=== PATIENT | male | born 1980 | race Hispanic/Latino ===

== ENCOUNTER 2021-11-15 16:18 | Emergency (ER) | payer OTHER ==
[2021-11-15] MEDS ORDERED: IOHEXOL 350 MG/ML 100ML INFUS..BTL IV ONE (16:50)
[2021-11-15 16:58] LABS: BASOPHILS % (AUTO) 0.3 % (0.0-5.0); LYMPHOCYTES % (AUTO) 29.7 % (21.0-51.0); MEAN CORPUSCULAR HEMOGLOBIN 31.1 pg (27.0-33.0); MEAN CORPUSCULAR HGB CONC 35.9 g/dL (32.0-36.0); MEAN CORPUSCULAR VOLUME 86.7 fL (79-99); MONOCYTES % (AUTO) 8.4 % (3.0-13.0); PLATELET COUNT (AUTO) 217 K/uL (130-400); RED BLOOD CELL COUNT(AUTO) 4.73 MIL/uL (4.50-6.20); RED CELL DISTRIBUTION WIDTH 11.8 % (11.0-15.5); WHITE BLOOD COUNT (AUTO) 9.2 K/uL (4.8-10.8)
[2021-11-15 17:18] LABS: ALBUMIN 3.8 g/dL (3.5-5.0); CREATININE 1.3 mg/dL (0.5-1.5); POTASSIUM 3.6 mmol/L (3.5-5.1); TOTAL PROTEIN, SERUM 7.8 g/dL (6.0-8.3)
[2021-11-15] MEDS ORDERED: LIDOCAINE HCL 1% 10 ML VIAL ONE (18:08)
[2021-11-15] MEDS ORDERED: CEFAZOLIN SODIUM 1 GM VIAL IVP STA (18:23)
[2021-11-15] MEDS ORDERED: 0.9%NACL 50ML 50 ML IV ONE (18:27)
[2021-11-15] MEDS ORDERED: HYDROCODONE/ACETAMINOPHEN 5/325 MG TAB PO ONE (21:00)
[2021-11-15] MEDS ORDERED: KETOROLAC 30MG VIAL (30MG/ML) IVP ONE (21:00)
[2021-11-15] MEDS ORDERED: TETANUS/DIPHTHERIA TOXOID [ADULT] 0.5 ML VIAL IM ONE (21:00)
[2021-11-15 21:35] LABS: APPEARANCE,URINE CLOUDY (CLEAR); BILIRUBIN,URINE NEGATIVE (NEGATIVE); COLOR,URINE YELLOW (YELLOW); GLUCOSE, URINE (UA) NEGATIVE (NEGATIVE); KETONES,URINE NEGATIVE (NEGATIVE); LEUKOCYTE ESTERASE ,URINE LARGE (NEGATIVE); NITRATE,URINE POSITIVE (NEGATIVE); OCCULT BLOOD,URINE MODERATE (NEGATIVE); PROTEIN,URINE NEGATIVE (NEGATIVE)
[2021-11-15 21:41] LABS: BACTERIA,URINE Moderate /HPF (None Seen); SQUAMOUS EPITHELIAL CELL,UR Few /HPF (0-2); WBC,URINE 51-100 /HPF (0-1)
[2021-11-15 22:00] VITALS: BP 131/71
[2021-11-15] MEDS ORDERED: CEPH500B PO (22:29)
[2021-11-15] MEDS ORDERED: ACET-2079 PO (22:29)
[2021-11-15] MEDS ORDERED: IBUP-2070 PO (22:29)
== END 2021-11-15 22:44 | disposition home or self-care (01) ==
LOC: EDH 16:18
DX: S68.127A Partial traumatic metacarpophalangeal amputation of left little finger, initial encounter (principal); S46.912A Strain of unspecified muscle, fascia and tendon at shoulder and upper arm level, left arm, initial encounter; S20.212A Contusion of left front wall of thorax, initial encounter; R82.71 Bacteriuria; W11.XXXA Fall on and from ladder, initial encounter; Y93.89 Activity, other specified; Y92.89 Other specified places as the place of occurrence of the external cause; Y99.8 Other external cause status
CPT/HCPCS: 99285; 70450; 96374; 96375; 82550; 84484; 80053; 85025; 87077; 87088; 87186; 81001; 36415; 90714; 73120; 73030; 72125; 71260; 74177; 90471; 29125; 93005; J0690 ×2; J1885; J3490; Q9967; 11730

== ENCOUNTER 2022-05-21 22:20 | Emergency (ER) | payer OTHER ==
[~2022-05-21] VITALS: Ht 167.6 cm; Wt 105.2 kg
[~2022-05-21 22:20] MED LIST: ACET-2079 PO; CEPH500B PO; IBUP-2070 PO
[2022-05-21] MEDS ORDERED: 0.9%NACL 1000ML 1,000 ML IV ONE (23:30)
[2022-05-21] MEDS ORDERED: IBUPROFEN 600 MG TABLET PO ONE (23:30)
[2022-05-21] MEDS ORDERED: ACETAMINOPHEN 500 MG TABLET PO ONE (23:30)
[2022-05-21 23:31] LABS: BASOPHILS % (AUTO) 0.2 % (0.0-5.0); HEMATOCRIT 41.4 % (42-54); LYMPHOCYTES % (AUTO) 5.2 % (21.0-51.0); MEAN CORPUSCULAR HEMOGLOBIN 30.1 pg (27.0-33.0); MEAN CORPUSCULAR HGB CONC 34.8 g/dL (32.0-36.0); MEAN CORPUSCULAR VOLUME 86.4 fL (79-99); MONOCYTES % (AUTO) 4.9 % (3.0-13.0); PLATELET COUNT (AUTO) 131 K/uL (130-400); RED BLOOD CELL COUNT(AUTO) 4.79 MIL/uL (4.50-6.20); WHITE BLOOD COUNT (AUTO) 11.1 K/uL (4.8-10.8)
[2022-05-21] MEDS: 0.9%NACL 1000ML 1,000 ML IV ONE (23:34)
[2022-05-21 23:42] LABS: POTASSIUM 3.8 mmol/L (3.5-5.1)
[2022-05-21 23:47] LABS: ALBUMIN 3.5 g/dL (3.5-5.0); TOTAL PROTEIN, SERUM 7.9 g/dL (6.0-8.3)
[2022-05-21 23:49] LABS: APPEARANCE,URINE HAZY (CLEAR); BILIRUBIN,URINE NEGATIVE (NEGATIVE); COLOR,URINE LIGHT-YELLOW (YELLOW); GLUCOSE, URINE (UA) 300 mg/dL (NEGATIVE); KETONES,URINE NEGATIVE (NEGATIVE); LEUKOCYTE ESTERASE ,URINE 25 Leu/uL (NEGATIVE); NITRATE,URINE NEGATIVE (NEGATIVE); OCCULT BLOOD,URINE NEGATIVE (NEGATIVE); PH,URINE 7.5 (5.0-8.0); PROTEIN,URINE 30 mg/dL (NEGATIVE)
[2022-05-21 23:51] LABS: BACTERIA,URINE RARE /HPF (None Seen); MUCUS,URINE RARE LPF (None Seen)
[2022-05-22] MEDS ORDERED: CEFTRIAXONE 1G VIAL IVP ONE
[2022-05-22] MEDS: 0.9%NACL 1000ML 1,000 ML IV ONE (00:26)
[2022-05-22 00:48] VITALS: BP 125/67
[2022-05-22] MEDS ORDERED: CEFU500T67 PO (00:57)
[2022-05-22] MEDS ORDERED: IBUP-1493 PO (00:58)
== END 2022-05-22 01:24 | disposition home or self-care (01) ==
LOC: EDH 22:20
DX: N39.0 Urinary tract infection, site not specified (principal); Z20.822 Contact with and (suspected) exposure to COVID-19
CPT/HCPCS: 99284; 71045; 87635; 96361; 80053; 85025; 87040 ×2; 87088; 87880; 87804 ×2; 83605; 81001; 36415; 96374; C9803; J7030; J0696